=== PATIENT | female | born 1985 | race Caucasian/White ===

== ENCOUNTER 2017-10-20 23:23 | Emergency (ER) | payer OTHER ==
[2017-10-20 23:37] VITALS: TEMP 99.7
[2017-10-20] MEDS ORDERED: ONDANSETRON 4 MG/2 ML VIAL ONE (23:38)
[2017-10-20] MEDS ORDERED: LORazepam 2 MG/ML INJ ONE (23:41)
[2017-10-20] MEDS ORDERED: LORazepam 2 MG/ML INJ IM ONE (23:41)
--- NOTE | 2017-10-20 23:44 | EDPHY ---
H & P Stated Complaint: Abdominal pain, uterine pain Source: Patient Exam Limitations: No limitations - Personal History LMP (Females 10-55): 15-21 Days Ago Current Tetanus/Diphtheria Vaccine: Yes Current Tetanus Diphtheria and Acellular Pertussis (TDAP): Yes - Medical/Surgical History Hx Asthma: No Hx Chronic Respiratory Disease: No Hx Diabetes: No Hx Cardiac Disease: No Hx Renal Disease: No Hx Cirrhosis: No Hx Alcoholism: No Hx HIV/AIDS: No Hx Splenectomy or Spleen Trauma: No - Social History Smoking Status: Never smoked Time Seen by Provider: 10/20/17 23:42 HPI/ROS: HPI: This is a 32-year-old female who presents with Chief Complaint: pelvic pain during sexual intercourse Location: Quality: Pain Duration: 30 min prior to arrival Signs and Symptoms: no fever, no nausea, no vomiting, no hematemesis, no blood in stool, no abdominal bloating, no diarrhea, no back pain, no urinary symptoms , no vaginal discharge/bleeding, no indigestion, no chest pain, no shortness of breath Timing: Acute Severity: 08/27 Context: Patient reports that she was having sexual intercourse when upon penetration she felt sudden, constant, severe pain that was nonradiating in nature. She reports that she felt like her cough for IUD had become dislodged or moved. She denies deep penetration or rough sexual intercourse. She then tried to check for the strings of her IUD but could not find them. She now complains of pelvic cramping and inability to straighten her legs due to the pain. Patient reports that the sexual intercourse was consensual. LMP 3 weeks ago. IUd since starting 2011. Patient took ibuprofen prior to arrival with no relief of pain. Modifying Factors: Ibuprofen Comment: ROS: see HPI Constitutional: No fever, no chills, no weight loss Eyes: No blurred vision Respiratory: No shortness of breath, no cough Cardiovascular: No chest pain, no palpitations Gastrointestinal: No nausea, no vomiting, no diarrhea, no hematemesis, no blood in stool Genitourinary: No dysuria, no blood in urine Extremities: No myalgias, no edema Neurologic: No weakness, no numbness Skin: No rashes, no petechiae Hematologic: No bruising, no bleeding MEDICAL/SURGICAL/SOCIAL HISTORY: Medical history: Generally healthy. Does not take any regular medications. Surgical history: Denies Social history: . CONSTITUTIONAL: Adult white female, awake and alert, moderate distress HEENT: Atraumatic and normocephalic, PERRL, EOMI. Tympanic membranes clear. Oropharynx clear, no exudate and moist pink mucosa. Airway patent. No lymphadenopathy. No meningismus. Cardiovascular: Normal S1/S2, regular rate, regular rhythm, without murmur rub or gallop. PULMONARY/CHEST: Symmetrical and nontender. Clear to auscultation bilaterally. Good air movement. No accessory muscle usage. ABDOMEN: Soft, nondistended, nontender, no rebound, no guarding, no peritoneal signs, no masses or organomegaly. No CVAT. PELVIC: normal external genitalia, normal cervix, cervical os was closed, one string able to be visualized, no lacerations, + cervical motion tenderness, no adnexal mass, no discharge, no bleeding. 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 EXTREMITIES: 2/2 pulses, strength 5/5, no deformities, no clubbing, no cyanosis or edema. NEUROLOGICAL: no focal neuro deficits. GCS 15. SKIN: Warm and dry, no erythema. no rash. Good capillary refill. (Shabnam Hsu) Constitutional: Initial Vital Signs Temperature (C) 37.6 C 10/20/17 23:32 Heart Rate 68 10/20/17 23:32 Respiratory Rate 18 10/20/17 23:32 Blood Pressure 121/77 H 10/20/17 23:32 O2 Sat (%) 98 10/20/17 23:32 O2 Delivery Mode Room Air Allergies/Adverse Reactions: Sulfa (Sulfonamide Antibiotics) Allergy (Verified 10/20/17 23:32) Medical Decision Making - Diagnostics Imaging Results: Pelvic ultrasound: IUD is normal and in place. Ovaries normal. Trace free fluid. Otherwise normal study. Results were discussed with staff radiologist Dr. Filippo Dorsey. (Oscar Wheatley) ED Course/Re-evaluation: Pelvic exam, pelvic ultrasound, IM medications, oral medication ordered given initially upon arrival IM Ativan 1 mg due to moderate distress Pelvic exam performed; no vaginal lacerations appreciated, no significant discharge. one IUD string identified. Given p.o. [place] x2 and p.o. Flexeril 0100: End of shift. Signed over to Dr. Wheatley. Pending ultrasound results and final disposition. (Shabnam Hsu) I took over care of this patient at 1:00 a.m.. The patient was re-evaluated by myself at 1:15 a.m.. She is comfortable at this time. Repeat abdominal exam she is soft, nontender nondistended. Results of ultrasound discussed with her. She is asking for some Flexeril for her cramping. She will be given a take- home pack of this medication. She feels comfortable going home with her boyfriend. I discussed follow-up with her primary care physician or OBGYN. Return to emergency department precautions reviewed. All of her questions were answered. The patient was discharged in good condition. (Oscar Wheatley ) Differential Diagnosis: Differential diagnosis includes but is not limited to vaginal laceration, dyspareunia, IUD migration. (Shabnam Hsu) - Data Points Medications Given: Discontinued Medications Cyclobenzaprine HCl (Flexeril) 10 mg PO EDNOW ONE Stop: 10/21/17 00:00 Last Admin: 10/21/17 00:04 Dose: 10 mg Lorazepam (Ativan Injection) 1 mg IM EDNOW ONE Stop: 10/20/17 23:42 Last Admin: 10/20/17 23:43 Dose: 1 mg Oxycodone/Acetaminophen (Percocet 5/325) 2 tab PO EDNOW ONE Stop: 10/21/17 00:00 Last Admin: 10/21/17 00:03 Dose: 2 tab Departure - Departure Disposition: Home, Routine, Self-Care Clinical Impression: IUD (intrauterine device) in place, Pelvic pain Condition: Good Instructions: Pelvic Pain in Women (ED) Additional Instructions: Read and follow provided instructions. Follow-up with your primary care physician in 1-2 days for re-evaluation. No sexual activity until cleared by her primary care physician or OBGYN. Ibuprofen dosin mg every 8 hours with meals for the next 3 days only. Take only as needed for pain. Flexeril, 10 m every 8 hr as needed for cramping and muscle spasm. Return to the emergency department for worsening pain, fever, bleeding or other serious concerns. Referrals: SHANTHI,DEEPK [Other] - As per Instructions
[2017-10-20] MEDS ORDERED: CYCLOBENZAPRINE 10 MG TAB PO ONE (23:59)
[2017-10-20] MEDS ORDERED: OXYCODONE/APAP 5/325 TAB PO ONE (23:59)
[2017-10-21] MEDS ORDERED: CYCLOBENZAPRINE 10MG PREPACK#3 BTL TAKEHOME ONE (01:12)
[2017-10-21 01:30] VITALS: BP 115/74; PULSE 78; RESP 18; O2SAT 98
== END 2017-10-21 01:30 | disposition home or self-care (01) ==
DX: R10.2 Pelvic and perineal pain (principal); Z97.5 Presence of (intrauterine) contraceptive device
CPT/HCPCS: J2060; J2405